=== PATIENT | male | born 1965 | race Two or more races ===

== ENCOUNTER → 2021-07-27 | Emergency (ER) | payer SELFPAY ==
[~2021-07-27] VITALS: Ht 175.3 cm; Wt 113.4 kg
== END ==
LOC: ER 13:19
DX: S01.81XA Laceration without foreign body of other part of head, initial encounter (principal); X58.XXXA Exposure to other specified factors, initial encounter; Y93.9 Activity, unspecified; Y92.89 Other specified places as the place of occurrence of the external cause; Y99.8 Other external cause status